=== PATIENT | male | born 1995 | race Caucasian/White ===

== ENCOUNTER 2018-06-04 18:55 | Emergency (ER) | payer BC ==
[~2018-06-04 18:55] MED LIST: CEPH500C24 PO; DIPH-740 PO
[2018-06-04 19:00] VITALS: BP 123/77
--- NOTE | 2018-06-04 19:12 | ER Report ---
History and Physical Time Seen By MD: 19:12 Hx. of Stated Complaint: Pt hurt left ring finger three weeks ago. Pt reports it was crushed in between someone who fell and rocks when hiking. HPI/ROS Source of History: The client Chief Concern: hurt finger History of Present Illnesses: 23-year-old patient presents to the Emergency Department and reports that hurt his finger three weeks ago. States he was carrying his girlfriend on his back when he lost his balance and she was propelled over his shoulders. When he grabbed her head with his hand to protect her from hitting a rock, his hand was smashed in-between a rock and her head. He states that for the last three weeks he has been using a finger splint but takes it off to sleep and work. Reports working with his hands for the past 3 weeks. Reports the finger has not improved and his mother made him come in today to get it checked out. Reports full range of motion and minimal pain. Denies associated symptoms, denies treatments tried. Constitutional. Denies recent illness, malaise, chills, fever. Cardiovascular. Denies chest pain, palpitations, or diaphoresis. Respiratory. Denies cough, shortness of breath, or wheezing. Musculoskeletal. Denies muscular pain, no joint pain. Reports pain of left ring finger. Allergies: Coded Allergies: No Known Drug Allergies (Unverified , 06/16/16) Home Meds Discontinued Scripts Cephalexin Monohydrate (CEPHALEXIN) 500 Mg Cap, 500 MG PO 3 times a day, #15 CAP TAKE 1 CAPSULE BY MOUTH EVERY SIX HOURS Prov:SPENCER PARSONS DO 06/16/16 Diphenhydramine Hcl (BENADRYL) 25 Mg Capsule, 25 MG PO Q6-8H, #20 CAPSULE TAKE 1 CAPSULE BY MOUTH EVERY 6 TO 8 HOURS Prov:SPENCER PARSONS DO 06/16/16 Past Medical/Surgical History Patient has a past medical history of ADHD. Reviewed Nurses Notes: Yes Hx Smoking: Yes Constitutional Vital Sign - Last 24 Hours 06/04/18 06/04/18 06/04/18 06/04/18 18:59 19:00 19:10 19:25 Temp 98.3 Pulse 91 73 76 Resp 16 B/P (MAP) 123/73 (90) 123/77 Pulse Ox 95 98 97 O2 Delivery Room Air 06/04/18 06/04/18 19:30 19:45 Pulse 94 79 Pulse Ox 94 95 Physical Exam Constitutional: 23-year-old male in no acute distress. Skin: [place] and well perfused. Left distal phalange hematoma. Head: Normocephalic and atraumatic. Cardiovascular: 2+ radial pulses BL equal. PMI - left midclavicular at the 5th ICS. Aortic, pulmonic, tricuspid, and mitral areas - clear S1/S2; no murmur, no S3, or S4. Respiratory: Respiratory Excursion BL equal and symmetrical; no presence of lag; quiet, rhythmic and effortless. No retractions. BL clear and equal. Musculoskeletal: Active motion of all extremities. Neurologic: Alert. Language clear. Sensation grossly intact. Differential Diagnoses: fracture, sprain, contusion Medical Decision Making EKG/Imaging Imaging FINGER LEFT 4TH DIGIT History: Left fourth digit pain. Comparison study: None. Findings: There is no fracture involving the left fourth digit or visualized portions of the left hand. IMPRESSION: Normal images of left fourth digit. No findings of a volar plate injury. Report Dictated By: Martinez Paulino MD at 06/04/2018 7:39 PM Report E-Signed By: Martinez Paulino MD at 06/04/2018 7:40 PM WSN:[id number] ED Course/Re-evaluation ED Course 23-year-old patient presents to the emergency department. He states he hurt his left ring finger 3 weeks ago but it has not gotten better. Reports his mother made him come in today. History and physical examination obtained. Differential diagnoses considered and shared with the patient. It was mutually decided to obtain an x-ray to assess for fracture. The radiologist report indicates no acute findings. However, I do appreciate some abnormalities noted to the distal phalange. The patient has been sent home for self-care and encouraged to use his finger splint for 3 additional weeks. The patient has been encouraged to use ibuprofen for pain and follow up with an orthopedist if his pain does not improve. Decision to Disposition Date: Jun 04, 2018 Decision to Disposition Time: 19:48 Depart Departure Latest Vital Signs Vital Signs Date Time Temp Pulse Resp B/P (MAP) Pulse Ox O2 Delivery O2 Flow Rate FiO2 06/04/18 19:45 79 95 06/04/18 19:00 98.3 16 123/77 Room Air Impression: Primary Impression: Distal phalanx or phalanges, closed fracture Condition: Condition Unchanged Disposition: HOME OR SELF-CARE New Scripts No Active Prescriptions or Reported Meds Patient Instructions: Contusion in Adults (ED) Additional Instructions: Follow up with your desired site identification specialist if you continue to have pain or difficulty moving the finger. Continue to immobilize the finger with splint at all times until pain has resolved. Use ibuprofen for pain relief as needed. Follow up with your primary care provider. Return to the Emergency Department if your condition worsens. Problem Qualifiers Primary Impression: Distal phalanx or phalanges, closed fracture Encounter type: initial encounter Finger: ring finger Fracture alignment: nondisplaced Laterality: left Qualified Codes: S62.665A - Nondisplaced fracture of distal phalanx of left ring finger, initial encounter for closed fracture KANA BLANDON Jun 04, 2018 19:12
--- NOTE | 2018-06-04 19:44 | RADIOLOGY IMAGING REPORT ---
FACILITY: [facility] PATIENT NAME: Iftikhar Menchaca : 1995 MR: [id number] V: [id number] EXAM DATE: ORDERING PHYSICIAN: KANA BLANDON TECHNOLOGIST: Location: [facility] [place] Patient: Iftikhar Menchaca : 1995 Visit/Account:[id number] Date of Sevice: 06/04/2018 FINGER LEFT 4TH DIGIT History: Left fourth digit pain. Comparison study: None. Findings: There is no fracture involving the left fourth digit or visualized portions of the left [place]. IMPRESSION: Normal images of left fourth digit. No findings of a volar plate injury. Report Dictated By: Martinez Paulino MD at 06/04/2018 7:39 PM Report E-Signed By: Martinez Paulino MD at 06/04/2018 7:40 PM [id number]
== END 2018-06-04 19:56 | disposition home or self-care (01) ==
LOC: ER 19:14
DX: S62.665A Nondisplaced fracture of distal phalanx of left ring finger, initial encounter for closed fracture (principal)
CPT/HCPCS: 99283